=== PATIENT | male | born 1985 | race Caucasian/White ===

== ENCOUNTER 2021-03-01 12:58 | Emergency (ER) | payer OTHER ==
[~2021-03-01] VITALS: Ht 180.3 cm; Wt 74.8 kg
[2021-03-01] MEDS ORDERED: BUPRENORPHINE HC8 MG SL (13:26)
[2021-03-01] MEDS ORDERED: ZOFRAN4 MG PO (20:34)
--- OUTSIDE RECORDS SUMMARY | 2021-03-01 21:08 | XMS ---
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 Renetta VISIT COUNT (12 MO[address] [facility] [place] 1 JOSEP Beth TOTAL 3 NOTE: Visits indicate total known visits. ED/UCC VISIT TRACKING (12 MO.) 03/01/2021 12:[address] [facility] TYPE: Emergency COMPLAINT: - DIZZINESS [facility] DIAGNOSES: - Other viral infections of unspecified site - Overdose - Poisoning by heroin, accidental (unintentional), initial encounter - Drug Overdose 10/16/2020 20:54 [facility] TYPE: Emergency DIAGNOSES: - Sore Throat - Acute upper respiratory infection, unspecified - Other viral infections of unspecified site - COVID Rule out - Nasal Congestion INPATIENT VISIT TRACKING (12 MO.) No inpatient visits to display in this time frame [email or web address]
== END 2021-03-01 20:50 | disposition home or self-care (01) ==
LOC: ED 12:58
DX: K29.00 Acute gastritis without bleeding (principal); Z20.822 Contact with and (suspected) exposure to COVID-19; Z79.899 Other long term (current) drug therapy
CPT/HCPCS: 99284; A9270; C9803; U0003